=== PATIENT | male | born 1970 | race Caucasian/White ===

== ENCOUNTER 2019-02-08 22:33 | Emergency (ER) | payer OTHER ==
--- NOTE | 2019-02-08 23:23 | ER ---
Nurse's Notes [facility] Name: Ady Coombs Age: 48 yrs Sex: Male : 1970 Arrival Date: 02/08/2019 Time: 22:35 Bed 16 Private MD: Diagnosis: Headache Presentation: 02/08 22:55 Presenting complaint: Patient states: left eye pain, sharp pain since 2029. pt took ak1 Nightquil. Transition of care: patient was not received from another setting of care. Mechanism of Injury: No Mechanism of Injury. The patient denies any loss of vision. Onset of symptoms was February 08, 2019. Risk Assessment: Do you want to hurt yourself or someone else? Patient reports no desire to harm self or others. Initial Sepsis Screen: Does the patient meet any 2 criteria? No. Patient's initial sepsis screen is negative. Does the patient have a suspected source of infection? No. Patient's initial sepsis screen is negative. Care prior to arrival: None. 22:55 Method Of Arrival: Ambulatory ak1 22:55 Acuity: JEISON 3 ak1 Triage Assessment: 22:56 General: Appears uncomfortable, Behavior is cooperative, anxious. ak1 Historical: - Allergies: 22:56 No Known Allergies; ak1 - Home Meds: 22:56 Unable to obtain [Active]; ak1 - PMHx: 22:56 Diverticulitis; Hypertension; ak1 - Immunization history:: Adult Immunizations unknown. - Social history:: Smoking status: Patient/guardian denies using tobacco. - Ebola Screening: : No symptoms or risks identified at this time. Vital Signs: 22:56 BP 116 / 81; Pulse 98; Resp 16; Temp 97.9; Pulse Ox 95% ; Weight 90.72 kg (R); Height 5 ak1 ft. 11 in. (180.34 cm) (R); Pain 8/10; 22:56 Body Mass Index 27.89 (90.72 kg, 180.34 cm) ak1 ED Course: 22:35 Patient arrived in ED. cl3 22:56 Triage completed. ak1 22:56 Arm band placed on Patient placed in an exam room, on a stretcher, Patient notified of ak1 wait time. 23:06 Katiana Pastrana is Primary Nurse. lc1 23:09 Iftikhar Hutchison MD is Attending Physician. tw4 Administered Medications: No medications were administered Outcome: 23:23 Eloped from patient exam room, before seeing physician Time discovered patient gone: rr5 February 08, 2019 at 23:15 23:23 unknown 23:24 Patient left the ED. rr5 Signatures: Katiana Pastrana lc1 Leonila Strickland RN RN ak1 Iftikhar Hutchison MD MD tw4 Everton Kingston RN RN rr5 Hong Orosco 3
--- NOTE | 2019-02-08 23:23 | EDPHYS ---
Physician Documentation [facility] Name: Ady Coombs Age: 48 yrs Sex: Male : 1970 Arrival Date: 02/08/2019 Time: 22:35 Bed 16 Private MD: MAIRA Physician Iftikhar Hutchison Historical: - Allergies: 02/08 22:56 No Known Allergies; ak1 - Home Meds: 22:56 Unable to obtain [Active]; ak1 - PMHx: 22:56 Diverticulitis; Hypertension; ak1 - Immunization history:: Adult Immunizations unknown. - Social history:: Smoking status: Patient/guardian denies using tobacco. - Ebola Screening: : No symptoms or risks identified at this time. Vital Signs: 22:56 BP 116 / 81; Pulse 98; Resp 16; Temp 97.9; Pulse Ox 95% ; Weight 90.72 kg (R); Height 5 ak1 ft. 11 in. (180.34 cm) (R); Pain 8/10; 22:56 Body Mass Index 27.89 (90.72 kg, 180.34 cm) ak1 Administered Medications: No medications were administered Disposition: 02/08/19 23:22 Patient left the facility before being seen by provider. Preliminary diagnosis is Headache. - Patient left due to unknown. - Condition is Stable. - Problem is new. - Symptoms are unchanged. Signatures: Leonila Strickland, RN RN ak1 Iftikhar Hutchison MD MD tw4 Everton Kingston RN RN rr5 Corrections: (The following items were deleted from the chart) 23:24 23:22 02/08/2019 23:22 Patient left the facility before being seen by provider. rr5 Preliminary diagnosis is Headache. Reason stated they are leaving due to unknown. Condition is Stable. Problem is new. Symptoms are unchanged. 02/09 06:52 02/08 23:09 Patient medically screened. tw02/09 06:52 06:40 This 48 yrs old Male presents to ER via Ambulatory with complaints of tw4 Eye Pain. tw4
[2019-02-09 01:25] VITALS: BP 116/81; TEMP 97.9; O2SAT 95
== END 2019-02-08 23:24 | disposition left against medical advice (07) ==
LOC: ER 22:33
DX: Z53.21 Procedure and treatment not carried out due to patient leaving prior to being seen by health care provider (principal)
CPT/HCPCS: 99281